=== PATIENT | female | born 1965 ===

== ENCOUNTER 2021-08-09 00:35 | Inpatient (IN) | payer OTHER, SELFPAY ==
[2021-08-09] MEDS ORDERED: Magnesium 2 GM/50 ML BAG (IN WATER) ONE (00:44)
[2021-08-09] MEDS ORDERED: methylPREDNISolone Sod Succ/PF 125 MG/2 ML VIAL ONE (00:44)
[2021-08-09] MEDS ORDERED: fentaNYL Citrate-0.9 % NaCl/PF 100 ML IVPB SCH ×2 (01:00→15:00)
[2021-08-09 01:03] LABS: #Basophils 0.1 10x3/uL (0.0-0.2); #Monocytes 1.1 10x3/uL (0.0-1.1); #Neutrophils 9.6 10x3/uL (1.5-8.4); %Basophils 0.5 % (0.0-2.0); %Lymphocytes 28.5 % (18.0-47.0); %Monocytes 6.6 % (0.0-10.0); %Neutrophils 58.1 % (40.0-75.0); Hemoglobin 13.2 g/dL (12.0-15.5); Mean Corpuscular Hemoglobin 27.4 pg (27.0-33.0); Mean Corpuscular Volume 85.7 fl (81.6-98.3); Platelet Count 242 10x3/uL (150-450); RBC Distribution Width 14.3 % (11.5-14.5); Red Blood Cell (RBC) Count 4.81 10x6/uL (3.90-5.03); White Blood Cell (WBC) Count 16.5 10x3/uL (3.5-10.5)
[2021-08-09 01:16] LABS: ALT (SGPT) 11 U/L (8-55); AST (SGOT) 13 U/L (5-34); Albumin 3.6 g/dL (3.5-5.0); Alkaline Phosphatase 93 U/L (40-110); Anion Gap 12 mmol/L (10-20); BUN (Urea Nitrogen) 9 mg/dL (9.8-20.1); Bilirubin, Total 0.4 mg/dL (0.2-1.2); Calc. Creatinine Clearance 0 mL/min (70-130); Calcium 8.4 mg/dL (7.8-10.44); Carbon Dioxide 26 mmol/L (22-29); Chloride 98 mmol/L (98-107); Globulin 2.9 g/dL (2.4-3.5); Glucose 144 mg/dL (70-105); Potassium 3.9 mmol/L (3.5-5.1); Protein, Total 6.5 g/dL (6.0-8.3); Sodium 132 mmol/L (136-145)
[2021-08-09] MEDS ORDERED: Albuterol Sulfate 2.5 mg/0.5 ml Neb ONE ×2 (01:18→01:56)
[2021-08-09 01:35] LABS: Bilirubin Neg (Negative); Blood, Urine Negative (Negative); Clarity Clear (Clear); Glucose, Urine (Dipstick) Normal (Negative); Ketone, Urine Negative (Negative); Leukocyte 25 (Negative); Nitrite Negative (Negative); Protein, Urine (Dipstick) 15 mg/dl (Neg-Trace); Urobilinogen Normal mg/dL (Less than 2)
[2021-08-09] MEDS ORDERED: Cefepime 2 GM VIAL ONE (01:51)
[2021-08-09 01:53] LABS: SARS-CoV-2 NAA Rapid Test Not Detected (NotDetected)
[2021-08-09 01:54] LABS: RBC/HPF 0-3 HPF (0-3)
[2021-08-09 01:55] LABS: Bacteria/HPF 1+ HPF (None Seen)
[2021-08-09] MEDS ORDERED: Budesonide 0.5 MG/2 ML NEB ONE (01:55)
[2021-08-09 01:56] LABS: Mucous/LPF 2+ LPF (<2+); Trichomonas/HPF Rare HPF (None Seen)
[2021-08-09 02:30] LABS: ALV-art Gradient 466.275 mmHg (0-20); CO2 Tension 81.7 mmHg (35.0-45.0); Carboxyhemoglobin (COHb) 4.7 gm% (0.0-3.0); Hemoglobin (Hb) 14.7 g/dL (12.0-16.0); O2 Tension (PaO2), arterial 144.6 mmHg (80.0-100.0); Potassium - ABG Lab 3.5 mmol/L (3.70-5.30); Puncture Site LRA; pH, Arterial 7.17 (7.35-7.45)
[2021-08-09] MEDS ORDERED: Acetaminophen 650 MG Suppository PR PRN (02:32)
[2021-08-09] MEDS ORDERED: Ondansetron PF 4 MG/2 ML Vial IVP PRN (02:32)
[2021-08-09] MEDS ORDERED: Ondansetron ODT 4 MG TAB PO PRN (02:32)
[2021-08-09] MEDS ORDERED: cefTRIAXone\\ROCEPHIN 1 GM in Sodium Chloride 0.9% 100 ML IVPB SCH ×2 (02:45→09:00)
[2021-08-09] MEDS: Azithromycin 500 MG in Sodium Chloride 0.9% 250 ML 250 ML IVPB SCH (04:01)
[2021-08-09 04:09] VITALS: BMI 32.9
[2021-08-09] MEDS ORDERED: Piperacillin/Tazobactam 3.375 GM in Sodium Chloride 0.9% 100 ML IVPB SCH (04:15)
[2021-08-09] MEDS ORDERED: FLU VACC QS2021-22(6MOS UP)/PF 60 MCG/0.5 ML SYRINGE IM ONE (04:15)
[2021-08-09 04:26] LABS: ALV-art Gradient 346.875 mmHg (0-20); Actual Bicarbonate (HCO3a) 25.5 mEq/L (22-28); CO2 Tension 60.1 mmHg (35.0-45.0); Calcium, Ionized (arterial) 1.18 mmol/L (1.12-1.30); Carboxyhemoglobin (COHb) 3.4 gm% (0.0-3.0); Hemoglobin (Hb) 14.7 g/dL (12.0-16.0); Potassium - ABG Lab 3.7 mmol/L (3.70-5.30); Puncture Site RRA; pH, Arterial 7.25 (7.35-7.45)
[2021-08-09 04:32] LABS: #Basophils 0.1 10x3/uL (0.0-0.2); #Eosinphils 0.5 10x3/uL (0.0-0.5); #Monocytes 0.4 10x3/uL (0.0-1.1); #Neutrophils 13.7 10x3/uL (1.5-8.4); %Basophils 0.4 % (0.0-2.0); %Eosinophils 2.7 % (0.0-6.0); %Lymphocytes 11.8 % (18.0-47.0); %Monocytes 2.6 % (0.0-10.0); %Neutrophils 81.9 % (40.0-75.0); Hemoglobin 13.6 g/dL (12.0-15.5); Mean Corpuscular HGB CONC 30.8 g/dL (32.0-36.0); Mean Corpuscular Hemoglobin 26.9 pg (27.0-33.0); Mean Corpuscular Volume 87.4 fl (81.6-98.3); Mean Platelet Volume 10.1 fl (7.4-10.4); Platelet Count 233 10x3/uL (150-450); RBC Distribution Width 14.5 % (11.5-14.5); Red Blood Cell (RBC) Count 5.06 10x6/uL (3.90-5.03); White Blood Cell (WBC) Count 16.7 10x3/uL (3.5-10.5)
[2021-08-09 04:42] LABS: Anion Gap 12 mmol/L (10-20); BUN (Urea Nitrogen) 9 mg/dL (9.8-20.1); Calc. Creatinine Clearance 115 mL/min (70-130); Calcium 8.9 mg/dL (7.8-10.44); Carbon Dioxide 27 mmol/L (22-29); Chloride 96 mmol/L (98-107); Glucose 206 mg/dL (70-105); Sodium 131 mmol/L (136-145)
[2021-08-09 07:33] LABS: Actual Bicarbonate (HCO3a) 26.9 mEq/L (22-28); Base Excess (BEa) 1.4 mEq/L (-2.0 to +3.0); CO2 Tension 45.7 mmHg (35.0-45.0); Calcium, Ionized (arterial) 1.14 mmol/L (1.12-1.30); Carboxyhemoglobin (COHb) 1.4 gm% (0.0-3.0); Hemoglobin (Hb) 14.2 g/dL (12.0-16.0); O2 Tension (PaO2), arterial 76.7 mmHg (80.0-100.0); Potassium - ABG Lab 3.9 mmol/L (3.70-5.30); Puncture Site RRA; pH, Arterial 7.39 (7.35-7.45)
[2021-08-09 07:36] LABS: ALV-art Gradient 293.975 mmHg (0-20)
[2021-08-09] MEDS: Piperacillin/Tazobactam 3.375 GM in Sodium Chloride 0.9% 100 ML IVPB SCH ×2 (09:26→16:04)
[2021-08-09] MEDS: Enoxaparin Sodium 40 MG/0.4 ML SYRINGE SC SCH (09:26)
[2021-08-09] MEDS: methylPREDNISolone Sod Succ 40 MG VIAL IVP SCH (09:27)
[2021-08-09] MEDS ORDERED: Propofol 1,000 MG/100 ML VIAL IV ONE (14:50)
[2021-08-09] MEDS: Propofol 1,000 MG/100 ML VIAL IV PRN (14:53)
[2021-08-09] MEDS ORDERED: Propofol BOLUS 1,000 MG/100 ML VIAL IV PRN (15:00)
[2021-08-09] MEDS ORDERED: Fentanyl BOLUS 250 ML IVPB PRN (15:00)
[2021-08-09] MEDS ORDERED: Morphine 4 MG/ML VIAL SLOW IVP PRN (15:00)
[2021-08-09] MEDS ORDERED: DISCONTINUE PREVIOUS NARCOTIC PAIN MEDICATIONS AND BENZODIAZEPINES FS SCH (15:00)
[2021-08-09] MEDS ORDERED: Morphine 2 MG/ML VIAL SLOW IVP PRN (15:00)
[2021-08-09] MEDS ORDERED: Lorazepam 2 MG/ML VIAL SLOW IVP PRN (15:00)
[2021-08-10] MEDS: Piperacillin/Tazobactam 3.375 GM in Sodium Chloride 0.9% 100 ML IVPB SCH ×3 (00:30→19:46)
[2021-08-10] MEDS: Azithromycin 500 MG in Sodium Chloride 0.9% 250 ML 250 ML IVPB SCH (03:32)
[2021-08-10 04:26] LABS: Anion Gap 14 mmol/L (10-20); BUN (Urea Nitrogen) 18 mg/dL (9.8-20.1); Calc. Creatinine Clearance 118 mL/min (70-130); Calcium 8.6 mg/dL (7.8-10.44); Carbon Dioxide 22 mmol/L (22-29); Chloride 102 mmol/L (98-107); Glucose 226 mg/dL (70-105); Potassium 5.1 mmol/L (3.5-5.1); Sodium 133 mmol/L (136-145)
[2021-08-10 04:55] LABS: Hemoglobin 12.9 g/dL (12.0-15.5); Mean Corpuscular HGB CONC 33.2 g/dL (32.0-36.0); Mean Corpuscular Hemoglobin 27.3 pg (27.0-33.0); Mean Platelet Volume 10.5 fl (7.4-10.4); RBC Distribution Width 14.6 % (11.5-14.5); Red Blood Cell (RBC) Count 4.73 10x6/uL (3.90-5.03)
[2021-08-10 05:02] LABS: Platelet Count 193 10x3/uL (150-450)
[2021-08-10 05:43] LABS: Lymphocytes 13 % (21-51); Monocytes 11 % (0-10)
[2021-08-10 05:44] LABS: Band 3 % (5-11); Neutrophil 73 % (42-75); Platelet Clumps MODERATE; Platelet Morphology Comment Appears Adequate
[2021-08-10 05:45] LABS: Toxic Granulation SLIGHT; Vacuoles SLIGHT
[2021-08-10 05:46] LABS: RBC Morphology Normal
[2021-08-10] MEDS: Propofol 1,000 MG/100 ML VIAL IV PRN (05:49)
[2021-08-10] MEDS: Enoxaparin Sodium 40 MG/0.4 ML SYRINGE SC SCH (09:04)
[2021-08-10] MEDS: methylPREDNISolone Sod Succ 40 MG VIAL IVP SCH (09:06)
[2021-08-10] MEDS: Dexmedetomidine In 0.9 % NaCl 100 ML IVPB SCH ×2 (16:17→23:25)
[2021-08-11] MEDS: Piperacillin/Tazobactam 3.375 GM in Sodium Chloride 0.9% 100 ML IVPB SCH ×3 (00:39→16:23)
[2021-08-11] MEDS: Azithromycin 500 MG in Sodium Chloride 0.9% 250 ML 250 ML IVPB SCH (04:06)
[2021-08-11 04:22] LABS: Anion Gap 9 mmol/L (10-20); BUN (Urea Nitrogen) 21 mg/dL (9.8-20.1); Calc. Creatinine Clearance 127 mL/min (70-130); Carbon Dioxide 28 mmol/L (22-29); Chloride 102 mmol/L (98-107); Glucose 210 mg/dL (70-105); Potassium 4.2 mmol/L (3.5-5.1); Sodium 135 mmol/L (136-145)
[2021-08-11 05:22] LABS: Hemoglobin 11.4 g/dL (12.0-15.5); Lymphocytes 22 % (21-51); MDiff Complete? YES; Mean Corpuscular HGB CONC 32.1 g/dL (32.0-36.0); Mean Corpuscular Hemoglobin 27.6 pg (27.0-33.0); Mean Platelet Volume 10.3 fl (7.4-10.4); Monocytes 4 % (0-10); Neutrophil 74 % (42-75); Platelet Count 217 10x3/uL (150-450); Platelet Morphology Comment Appears Adequate; RBC Morphology Normal; Red Blood Cell (RBC) Count 4.13 10x6/uL (3.90-5.03); White Blood Cell (WBC) Count 13.8 10x3/uL (3.5-10.5)
[2021-08-11] MEDS: Dexmedetomidine In 0.9 % NaCl 100 ML IVPB SCH ×2 (05:48→10:30)
[2021-08-11] MEDS: Enoxaparin Sodium 40 MG/0.4 ML SYRINGE SC SCH (07:37)
[2021-08-11] MEDS: methylPREDNISolone Sod Succ 40 MG VIAL IVP SCH (07:39)
[2021-08-11] MEDS: Acetaminophen 325 MG TAB PO PRN (14:20)
[2021-08-11 16:17] LABS: ALV-art Gradient 95.275 mmHg (0-20); Actual Bicarbonate (HCO3a) 29.1 mEq/L (22-28); Base Excess (BEa) 3.8 mEq/L (-2.0 to +3.0); CO2 Tension 46.5 mmHg (35.0-45.0); Carboxyhemoglobin (COHb) 0.6 gm% (0.0-3.0); Hemoglobin (Hb) 12.2 g/dL (12.0-16.0); O2 Tension (PaO2), arterial 60.5 mmHg (80.0-100.0); Puncture Site RRA; pH, Arterial 7.41 (7.35-7.45)
[2021-08-12] MEDS: Azithromycin 500 MG in Sodium Chloride 0.9% 250 ML 250 ML IVPB SCH (04:08)
[2021-08-12 05:01] LABS: Anion Gap 14 mmol/L (10-20); BUN (Urea Nitrogen) 14 mg/dL (9.8-20.1); Calc. Creatinine Clearance 129 mL/min (70-130); Calcium 9.4 mg/dL (7.8-10.44); Carbon Dioxide 25 mmol/L (22-29); Chloride 102 mmol/L (98-107); Glucose 146 mg/dL (70-105); Potassium 4.1 mmol/L (3.5-5.1); Sodium 137 mmol/L (136-145)
[2021-08-12 05:44] LABS: Eosinophils 1 % (0-10); Hemoglobin 12.8 g/dL (12.0-15.5); Lymphocytes 28 % (21-51); MDiff Complete? YES; Mean Corpuscular HGB CONC 31.8 g/dL (32.0-36.0); Mean Corpuscular Hemoglobin 27.1 pg (27.0-33.0); Mean Corpuscular Volume 85.4 fl (81.6-98.3); Mean Platelet Volume 10.2 fl (7.4-10.4); Monocytes 8 % (0-10); Neutrophil 62 % (42-75); Platelet Count 221 10x3/uL (150-450); Platelet Morphology Comment Appears Adequate; RBC Distribution Width 15.1 % (11.5-14.5); RBC Morphology Normal; Reactive Lymphocytes 1 % (0-10); Red Blood Cell (RBC) Count 4.72 10x6/uL (3.90-5.03); Small Platelets MODERATE; White Blood Cell (WBC) Count 17.3 10x3/uL (3.5-10.5)
[2021-08-12] MEDS: predniSONE 20 MG TAB PO SCH (08:41)
[2021-08-12] MEDS: Acetaminophen 325 MG TAB PO PRN (08:42)
[2021-08-12] MEDS: Enoxaparin Sodium 40 MG/0.4 ML SYRINGE SC SCH (08:43)
[2021-08-12] MEDS ORDERED: Amoxicillin/Potassium Clav 875 MG TAB PO SCH (11:45)
[2021-08-12] MEDS ORDERED: Lactated Ringer's 1,000 ML IV SCH (11:45)
[2021-08-12] MEDS: Mometasone Furoate 220 MCG AER IH SCH (20:27)
[2021-08-12] MEDS: Amoxicillin/Potassium Clav 875 MG TAB PO SCH (20:30)
[2021-08-13] MEDS: Azithromycin 500 MG in Sodium Chloride 0.9% 250 ML 250 ML IVPB SCH (02:56)
[2021-08-13 04:19] LABS: Hemoglobin 12.5 g/dL (12.0-15.5); Mean Corpuscular HGB CONC 32.6 g/dL (32.0-36.0); Mean Corpuscular Hemoglobin 27.6 pg (27.0-33.0); Mean Corpuscular Volume 84.8 fl (81.6-98.3); Mean Platelet Volume 10.3 fl (7.4-10.4); Platelet Count 207 10x3/uL (150-450); RBC Distribution Width 14.8 % (11.5-14.5); Red Blood Cell (RBC) Count 4.53 10x6/uL (3.90-5.03); White Blood Cell (WBC) Count 11.7 10x3/uL (3.5-10.5)
[2021-08-13 04:28] LABS: Anion Gap 13 mmol/L (10-20); BUN (Urea Nitrogen) 11 mg/dL (9.8-20.1); Calc. Creatinine Clearance 127 mL/min (70-130); Calcium 8.5 mg/dL (7.8-10.44); Carbon Dioxide 24 mmol/L (22-29); Chloride 105 mmol/L (98-107); Glucose 157 mg/dL (70-105); Potassium 3.8 mmol/L (3.5-5.1); Sodium 138 mmol/L (136-145)
[2021-08-13 05:21] LABS: MDiff Complete? YES
[2021-08-13 05:23] LABS: Lymphocytes 32 % (21-51); Monocytes 4 % (0-10); Neutrophil 64 % (42-75)
[2021-08-13 05:24] LABS: Platelet Morphology Comment Appears Adequate; RBC Morphology Normal
[2021-08-13] MEDS: Amlodipine 5 MG TAB PO SCH (08:21)
[2021-08-13] MEDS: Amoxicillin/Potassium Clav 875 MG TAB PO SCH ×2 (08:25→21:55)
[2021-08-13] MEDS: Enoxaparin Sodium 40 MG/0.4 ML SYRINGE SC SCH (08:26)
[2021-08-13] MEDS: Hydrochlorothiazide 25 MG TAB PO SCH (08:26)
[2021-08-13] MEDS: Lisinopril 20 MG TAB PO SCH (08:27)
[2021-08-13] MEDS: predniSONE 20 MG TAB PO SCH (08:28)
[2021-08-13] MEDS ORDERED: Budesonide 0.5 MG/2 ML NEB ONE (09:52)
[2021-08-13] MEDS ORDERED: Arformoterol 15 MCG/2 ML NEB NEB SCH (10:00)
[2021-08-13] MEDS: Guaifenesin DM 100-10/5 ML UDCUP PO PRN ×2 (11:19→21:55)
[2021-08-13] MEDS: Arformoterol 15 MCG/2 ML NEB NEB SCH (18:50)
[2021-08-13] MEDS: Mometasone Furoate 220 MCG AER IH SCH (19:05)
[2021-08-14 04:03] LABS: Anion Gap 13 mmol/L (10-20); BUN (Urea Nitrogen) 8 mg/dL (9.8-20.1); Calc. Creatinine Clearance 127 mL/min (70-130); Calcium 9.1 mg/dL (7.8-10.44); Carbon Dioxide 27 mmol/L (22-29); Chloride 103 mmol/L (98-107); Glucose 136 mg/dL (70-105); Potassium 3.3 mmol/L (3.5-5.1); Sodium 140 mmol/L (136-145)
[2021-08-14 04:13] LABS: Hemoglobin 12.5 g/dL (12.0-15.5); Mean Corpuscular Hemoglobin 26.9 pg (27.0-33.0); Mean Corpuscular Volume 84.1 fl (81.6-98.3); Mean Platelet Volume 10.2 fl (7.4-10.4); Platelet Count 241 10x3/uL (150-450); RBC Distribution Width 14.2 % (11.5-14.5); Red Blood Cell (RBC) Count 4.65 10x6/uL (3.90-5.03); White Blood Cell (WBC) Count 12.7 10x3/uL (3.5-10.5)
[2021-08-14 05:13] LABS: MDiff Complete? YES
[2021-08-14 05:14] LABS: Platelet Morphology Comment Appears Adequate
[2021-08-14 05:15] LABS: RBC Morphology Normal
[2021-08-14 05:23] LABS: Eosinophils 1 % (0-10); Lymphocytes 36 % (21-51); Monocytes 4 % (0-10); Neutrophil 59 % (42-75)
[2021-08-14] MEDS: Arformoterol 15 MCG/2 ML NEB NEB SCH (08:15)
[2021-08-14] MEDS: Amoxicillin/Potassium Clav 875 MG TAB PO SCH (08:17)
[2021-08-14] MEDS: Enoxaparin Sodium 40 MG/0.4 ML SYRINGE SC SCH (08:17)
[2021-08-14] MEDS: Hydrochlorothiazide 25 MG TAB PO SCH (08:18)
[2021-08-14] MEDS: Lisinopril 20 MG TAB PO SCH (08:19)
[2021-08-14] MEDS: Amlodipine 5 MG TAB PO SCH (08:19)
[2021-08-14] MEDS ORDERED: Potassium Bicarbonate/Cit Ac 20 MEQ TAB PO SCH (09:00)
[2021-08-14 11:49] VITALS: TEMP 97.4
[2021-08-14 14:25] VITALS: BP 103/70
== END 2021-08-14 16:50 | disposition home or self-care (01) | DRG 208 ==
LOC: CSHERS 00:35 → CSHIMCU 00:36 → CSHTELE 08-13 14:10
PROVIDERS: ADMIT Student in an Organized Health Care Education/Training Program; ATTEND Hospitalist
PROC: 5A1945Z Respiratory Ventilation, 24-96 Consecutive Hours (ICD-10-PCS; principal; 2021-08-09)
DX: J15.6 Pneumonia due to other Gram-negative bacteria (principal); A41.50 Gram-negative sepsis, unspecified; J96.21 Acute and chronic respiratory failure with hypoxia; J96.02 Acute respiratory failure with hypercapnia; G93.41 Metabolic encephalopathy; J44.1 Chronic obstructive pulmonary disease with (acute) exacerbation; J44.0 Chronic obstructive pulmonary disease with (acute) lower respiratory infection; E87.1 Hypo-osmolality and hyponatremia; J45.901 Unspecified asthma with (acute) exacerbation; B18.2 Chronic viral hepatitis C; I25.10 Atherosclerotic heart disease of native coronary artery without angina pectoris; R73.9 Hyperglycemia, unspecified; M19.90 Unspecified osteoarthritis, unspecified site; Z79.82 Long term (current) use of aspirin; Z79.899 Other long term (current) drug therapy
CPT/HCPCS: 36415; 36416; 36600; 51702; 70450; 71045; 71250; 80048; 80053; 81003; 81015; 82805; 83605; 84484; 85007; 85025; 85027; 87040; 87070; 87081; 87086; 87205; 89220; 93005; 93010; 94002; 94003; 94640; 94760; 94762; 96365; 96366; 96368; 96375; J0456; J0692; J1650; J2543; J2704; J2920; J2930; J3370; J3475; J3490; J7050; J7120; J7512; J7611; J7620; J7626; U0002